=== PATIENT | male | born 1980 | race Caucasian/White ===

== ENCOUNTER 2017-04-25 05:50 | Inpatient (IN) | payer OTHER ==
[~2017-04-25] VITALS: Ht 172.7 cm; Wt 71.0 kg
[2017-04-25] VITALS (24 sets, daily range): BP systolic 86–139; BP diastolic 52–87; PULSE 50–111; RESP 16–20; TEMP 97.5–98.4; O2SAT 96–100
[~2017-04-25 05:50] MED LIST: BENA25TA8 PO; PRED50TA PO; RANI150 PO
[2017-04-25] MEDS ORDERED: SODIUM CHLORIDE 0.9% FLUSH 10 ML FLUSH IVF PRN ×2 (06:15→08:00)
[2017-04-25] MEDS ORDERED: ASPIRIN 81 MG CHEW TAB PO ONE (06:15)
[2017-04-25] MEDS ORDERED: SODIUM CHLOR 0.9% 1000 ML INJ 1,000 ML IV ONE ×3 (06:30→07:30)
[2017-04-25] MEDS ORDERED: ONDANSETRON HCL 4 MG/2 ML VIAL IV PUSH ONE ×2 (06:30→07:00)
[2017-04-25] MEDS ORDERED: SODIUM CHLOR 0.9% 1000 ML INJ 1,000 ML IV SCH (06:30)
--- NOTE | 2017-04-25 06:30 | RADRPT ---
EXAM DATE/TIME: 04/25/2017 06:15 [facility] COMPARISON: No previous studies available for comparison. INDICATIONS : Chest pain. MEDICAL HISTORY : None. SURGICAL HISTORY : None. ENCOUNTER: Initial ACUITY: 1 day PAIN SCORE: 10/10 LOCATION: Bilateral chest FINDINGS: A single view of the chest demonstrates the lungs to be symmetrically aerated without evidence of mas s, infiltrate or effusion. The cardiomediastinal contours are unremarkable. Osseous structures are intact. CONCLUSION: No evidence of acute cardiopulmonary disease. Sea Metcalf MD on April 25, 2017 at 6:28 Board Certified Radiologist. This report was verified electronically.
--- NOTE | 2017-04-25 06:30 | PD ---
HPI Chief Complaint: shoulder pain Time Seen by Provider: 06:11 Travel History International Travel<30 days: No Contact w/Intl Traveler<30days: No Traveled to known affect area: No History of Present Illness HPI 36 year-old male presents to the emergency department by private transportation for complaint of 2 hours of 9/10 left shoulder pain. Patient denies any injury or fall. Patient's had no fever or chills. Patient does not note increased pain with range of motion. Patient denies any chronic medical conditions prior surgery for colon is started as an at age one week. Patient takes no medications on a daily basis has no allergies does not smoke cigarettes drink alcohol or take any substances. Patient has family history of asthma and has mother has and cancer in his father has . Patient's had no recent long distance travel protracted bedrest her surgical procedure. Patient denies any chest pain. Patient does note shortness of breath nausea and diaphoresis. Patient took no medications prior to arrival to the emergency department. Patient reports left shoulder pain as a dull constant ache that has not improved. [facility] Past Medical History Narrative Medical hole in heart repair; occasional alcohol use; nursing notes reviewed Past Surgical History Other Surgery: Yes (heart surgery as an for hole in heart) Social History Alcohol Use: Yes (socially) Tobacco Use: No Substance Use: No Allergies-Medications (Allergen,Severity, Reaction): Coded Allergies: No Known Allergies (Unverified , 04/25/17) Reported Meds & Prescriptions Reported Meds & Active Scripts Active Review of Systems Except as stated in HPI: all other systems reviewed are Neg General / Constitutional: No: Fever, Chills HENT: No: Congestion Cardiovascular: Positive: Diaphoresis, No: Chest Pain or Discomfort, Dyspnea on exertion Respiratory: Positive: Shortness of Breath Gastrointestinal: Positive: Nausea, No: Vomiting, Abdominal Pain Genitourinary: No: Flank Pain Musculoskeletal: Positive: Pain (left shoulder) Skin: No Rash Neurologic: Positive: Weakness, No: Dizziness, Syncope, Focal Abnormalities, Coordination Problem Psychiatric: No: Anxiety Hematologic/Lymphatic: No: Lymph Node Enlargement Physical Exam Narrative GENERAL: Well-developed well-nourished male appears mildly ill with mild diaphoresis SKIN: Warm and dry. HEAD: Normocephalic. EYES: No scleral icterus. No injection or drainage. NECK: Supple, trachea midline. No JVD or lymphadenopathy. CARDIOVASCULAR: Regular rate and rhythm without murmurs, gallops, or rubs. RESPIRATORY: Breath sounds equal bilaterally. No accessory muscle use. GASTROINTESTINAL: Abdomen soft, non-tender, nondistended. MUSCULOSKELETAL: No cyanosis, or edema. Bilateral shoulders demonstrate full range of motion bilateral radial pulses 2+ to palpation dorsalis pedis pulses 2 + to palpation BACK: Nontender without obvious deformity. No CVA tenderness. Data Data Last Documented VS Vital Signs Date Time Temp Pulse Resp B/P Pulse Ox O2 Delivery O2 Flow Rate FiO2 04/25/17 07:31 88 16 112/61 100 Nasal Cannula 2 04/25/17 06:28 97.5 Orders Electrocardiogram (04/25/17 06:11) Basic Metabolic Panel (Bmp) (04/25/17 06:11) Ckmb (Isoenzyme) Profile (04/25/17 06:11) Complete Blood Count With Diff (04/25/17 06:11) Magnesium (Mg) (04/25/17 06:11) Prothrombin Time / Inr (Pt) (04/25/17 06:11) Act Partial Throm Time (Ptt) (04/25/17 06:11) Troponin I (04/25/17 06:11) Chest, Single Ap (04/25/17 06:11) Ecg Monitoring (04/25/17 06:11) Bilateral Bp Monitoring (04/25/17 06:11) Iv Access Insert/Monitor (04/25/17 06:11) Oximetry (04/25/17 06:11) Oxygen Administration (04/25/17 06:11) Aspirin Chew (Aspirin Chew) (04/25/17 06:15) Sodium Chloride 0.9% Flush (Ns Flush) (04/25/17 06:15) Sodium Chlor 0.9% 1000 Ml Inj (Ns 1000 M (04/25/17 06:30) Sodium Chlor 0.9% 1000 Ml Inj (Ns 1000 M (04/25/17 06:30) Sodium Chlor 0.9% 1000 Ml Inj (Ns 1000 M (04/25/17 06:30) Ondansetron Inj (Zofran Inj) (04/25/17 06:30) Atropine Inj (Atropine Inj) (04/25/17 06:35) CKMB (04/25/17 06:20) CKMB% (04/25/17 06:20) Ondansetron Inj (Zofran Inj) (04/25/17 07:00) Morphine Inj (Morphine Inj) (04/25/17 07:00) Cta Thor Abd Aorta W Iv C W3d (04/25/17 ) Nitroglycerin Sl (Nitrostat Sl) (04/25/17 07:00) Electrocardiogram (04/25/17 ) Sodium Chlor 0.9% 1000 Ml Inj (Ns 1000 M (04/25/17 07:30) Labs Laboratory Tests Test 04/25/17 06:20 White Blood Count 7.8 TH/MM3 Red Blood Count 4.79 MIL/MM3 Hemoglobin 14.7 GM/DL Hematocrit 43.2 % Mean Corpuscular Volume 90.1 FL Mean Corpuscular Hemoglobin 30.7 PG Mean Corpuscular Hemoglobin 34.1 % Concent Red Cell Distribution Width 12.5 % Platelet Count 297 TH/MM3 Mean Platelet Volume 8.1 FL Neutrophils (%) (Auto) 50.8 % Lymphocytes (%) (Auto) 32.4 % Monocytes (%) (Auto) 7.3 % Eosinophils (%) (Auto) 7.1 % Basophils (%) (Auto) 2.4 % Neutrophils # (Auto) 3.9 TH/MM3 Lymphocytes # (Auto) 2.5 TH/MM3 Monocytes # (Auto) 0.6 TH/MM3 Eosinophils # (Auto) 0.6 TH/MM3 Basophils # (Auto) 0.2 TH/MM3 CBC Comment DIFF FINAL Differential Comment Prothrombin Time 10.9 SEC Prothromb Time International 1.0 RATIO Ratio Activated Partial 23.3 SEC Thromboplast Time Sodium Level 141 MEQ/L Potassium Level 3.5 MEQ/L Chloride Level 106 MEQ/L Carbon Dioxide Level 26.5 MEQ/L Anion Gap 9 MEQ/L Blood Urea Nitrogen 15 MG/DL Creatinine 0.96 MG/DL Estimat Glomerular Filtration 88 ML/MIN Rate Random Glucose 149 MG/DL Calcium Level 8.9 MG/DL Magnesium Level 2.2 MG/DL Total Creatine Kinase 107 U/L Creatine Kinase MB 0.8 NG/ML Troponin I LESS THAN 0.02 NG/ML MDM Medical Decision Making Medical Screen Exam Complete: Yes Emergency Medical Condition: Yes Medical Record Reviewed: Yes Interpretation(s) EKG sinus bradycardia rate [address] elevation or injury pattern change noted Differential Diagnosis Shoulder pain, ACS, VA, PE, aortic dissection, pneumothorax, musculoskeletal pain, vasovagal near syncope Narrative Course 36-year-old male presents to the emergency department for 2 hours of severe left shoulder pain without injury and not worsened by range of motion with mild diaphoresis complaint of shortness of breath and nausea; EKG performed which shows sinus bradycardia without acute ST elevation or injury pattern mildly biphasic T-wave in V1 patient with near vasovagal event during IV access insertion. Patient administered aspirin 162 mg 2 L of normal saline bolus maintenance IV fluids and Zofran 4 mg IV; chest x-ray reveals no lobar infiltrate effusion or pneumothorax. Patient administered 2 L of normal saline wide open along with maintenance IV fluids of 100 cc per hour patient administered Zofran 4 mg IV EKG repeated as left shoulder pain has now extended to anterior chest tightness Blood pressure has improved after IV fluid bolus and left shoulder pain has gone from 9/10 in intensity to 5/10 in intensity and chest discomfort has gone from 8/10 intensity to 7/10 in intensity blood pressure systolic is 139 patient has been ordered to receive subungual nitroglycerin. First set of cardiac enzymes are normal range stat CTA thoracic and abdomen ordered. Patient's care has been assumed by oncoming physician Dr. Teixeira with call placed to cardiology. Patient spouse are aware of plan to transfer patient to [facility]. Diagnosis Primary Impression: ACS (acute coronary syndrome) Admitting Information Admitting Physician Requests: Admit Arelis Milner MD Apr 25, 2017 06:30 Arelis Milner MD Apr 25, 2017 06:30
[2017-04-25] MEDS ORDERED: ATROPINE SULFATE 1 MG/10 ML SYRINGE ONE (06:35)
[2017-04-25 06:38] LABS: AUTOMATED NEUTROPHIL # 3.9 TH/MM3 (1.8-7.7); BASOPHIL # 0.2 TH/MM3 (0-0.2); BASOPHIL % 2.4 % (0.0-2.0); EOSINOPHIL # 0.6 TH/MM3 (0-0.4); EOSINOPHIL % 7.1 % (0.0-4.0); HEMATOCRIT 43.2 % (39.0-51.0); HEMO FLAGS DIFF FINAL; LYMPH % 32.4 % (9.0-44.0); LYMPHOCYTE # 2.5 TH/MM3 (1.0-4.8); MEAN CELL VOLUME 90.1 FL (80.0-100.0); MEAN CORPUSCULAR HEMOGLOBIN 30.7 PG (27.0-34.0); MEAN CORPUSCULAR HGB CONC 34.1 % (32.0-36.0); MONO % 7.3 % (0.0-8.0); NEUT % 50.8 % (16.0-70.0); PLATELET COUNT 297 TH/MM3 (150-450); RED BLOOD COUNT 4.79 MIL/MM3 (4.50-5.90); RED CELL DISTRIBUTION WIDTH 12.5 % (11.6-17.2); WHITE BLOOD COUNT 7.8 TH/MM3 (4.0-11.0)
[2017-04-25 06:39] LABS: CHLORIDE 106 MEQ/L (98-107); POTASSIUM 3.5 MEQ/L (3.5-5.1); SODIUM (NA) 141 MEQ/L (136-145)
[2017-04-25 06:42] LABS: ANION GAP 9 MEQ/L (5-15); BICARBONATE 26.5 MEQ/L (21.0-32.0); BLOOD UREA NITROGEN 15 MG/DL (7-18); MAGNESIUM 2.2 MG/DL (1.5-2.5)
[2017-04-25 06:43] LABS: APTT (PATIENT) 23.3 SEC (24.3-30.1); PROTHROMBIN TIME - PATIENT 10.9 SEC (9.8-11.6)
[2017-04-25 06:45] LABS: GLOMERULAR FILTRATION RATE 88 ML/MIN (>89)
[2017-04-25 06:49] LABS: CREATINE KINASE 107 U/L (39-308)
[2017-04-25] MEDS ORDERED: MORPHINE SULFATE 4 MG/ML INJ IV PUSH ONE (07:00)
[2017-04-25 07:01] LABS: CKMB 0.8 NG/ML (0.5-3.6)
--- NOTE | 2017-04-25 07:07 | PD ---
Physical Exam Narrative Patient was seen by ED physician and signed out to me. Data Data Last Documented VS Vital Signs Date Time Temp Pulse Resp B/P Pulse Ox O2 Delivery O2 Flow Rate FiO2 04/25/17 07:31 88 16 112/61 100 Nasal Cannula 2 04/25/17 06:28 97.5 Orders Electrocardiogram (04/25/17 06:11) Basic Metabolic Panel (Bmp) (04/25/17 06:11) Ckmb (Isoenzyme) Profile (04/25/17 06:11) Complete Blood Count With Diff (04/25/17 06:11) Magnesium (Mg) (04/25/17 06:11) Prothrombin Time / Inr (Pt) (04/25/17 06:11) Act Partial Throm Time (Ptt) (04/25/17 06:11) Troponin I (04/25/17 06:11) Chest, Single Ap (04/25/17 06:11) Ecg Monitoring (04/25/17 06:11) Bilateral Bp Monitoring (04/25/17 06:11) Iv Access Insert/Monitor (04/25/17 06:11) Oximetry (04/25/17 06:11) Oxygen Administration (04/25/17 06:11) Aspirin Chew (Aspirin Chew) (04/25/17 06:15) Sodium Chloride 0.9% Flush (Ns Flush) (04/25/17 06:15) Sodium Chlor 0.9% 1000 Ml Inj (Ns 1000 M (04/25/17 06:30) Sodium Chlor 0.9% 1000 Ml Inj (Ns 1000 M (04/25/17 06:30) Sodium Chlor 0.9% 1000 Ml Inj (Ns 1000 M (04/25/17 06:30) Ondansetron Inj (Zofran Inj) (04/25/17 06:30) Atropine Inj (Atropine Inj) (04/25/17 06:35) CKMB (04/25/17 06:20) CKMB% (04/25/17 06:20) Ondansetron Inj (Zofran Inj) (04/25/17 07:00) Morphine Inj (Morphine Inj) (04/25/17 07:00) Cta Thor Abd Aorta W Iv C W3d (04/25/17 ) Nitroglycerin Sl (Nitrostat Sl) (04/25/17 07:00) Electrocardiogram (04/25/17 ) Sodium Chlor 0.9% 1000 Ml Inj (Ns 1000 M (04/25/17 07:30) Admit Order (Ed Use Only) (04/25/17 07:44) Labs Laboratory Tests Test 04/25/17 06:20 White Blood Count 7.8 TH/MM3 Red Blood Count 4.79 MIL/MM3 Hemoglobin 14.7 GM/DL Hematocrit 43.2 % Mean Corpuscular Volume 90.1 FL Mean Corpuscular Hemoglobin 30.7 PG Mean Corpuscular Hemoglobin 34.1 % Concent Red Cell Distribution Width 12.5 % Platelet Count 297 TH/MM3 Mean Platelet Volume 8.1 FL Neutrophils (%) (Auto) 50.8 % Lymphocytes (%) (Auto) 32.4 % Monocytes (%) (Auto) 7.3 % Eosinophils (%) (Auto) 7.1 % Basophils (%) (Auto) 2.4 % Neutrophils # (Auto) 3.9 TH/MM3 Lymphocytes # (Auto) 2.5 TH/MM3 Monocytes # (Auto) 0.6 TH/MM3 Eosinophils # (Auto) 0.6 TH/MM3 Basophils # (Auto) 0.2 TH/MM3 CBC Comment DIFF FINAL Differential Comment Prothrombin Time 10.9 SEC Prothromb Time International 1.0 RATIO Ratio Activated Partial 23.3 SEC Thromboplast Time Sodium Level 141 MEQ/L Potassium Level 3.5 MEQ/L Chloride Level 106 MEQ/L Carbon Dioxide Level 26.5 MEQ/L Anion Gap 9 MEQ/L Blood Urea Nitrogen 15 MG/DL Creatinine 0.96 MG/DL Estimat Glomerular Filtration 88 ML/MIN Rate Random Glucose 149 MG/DL Calcium Level 8.9 MG/DL Magnesium Level 2.2 MG/DL Total Creatine Kinase 107 U/L Creatine Kinase MB 0.8 NG/ML Troponin I LESS THAN 0.02 NG/ML [facility] Supervised Visit with KRISTYN: No Interpretation(s) 7:14 AM. EKG shows sinus rhythm nonspecific ST-T wave change. Repeat EKG 2. Cardiac enzymes are normal. Narrative Course Patient was seen by ED physician and signed out to me. I spoke with Dr. Maciel , senior net developer on-call. Advised admission to the medical service with cardiology consultation. Patient was given aspirin and nitroglycerin. Dr. King advised no Lovenox or heparin. Diagnosis Primary Impression: Chest pain Qualified Code: R07.9 - Chest pain, unspecified type Admitting Information Admitting Physician Requests: Admit Walt Teixeira MD Apr 25, 2017 07:07
[2017-04-25] MEDS: NITROGLYCERIN 0.4 MG SL 25 TABS/BTL SL PRN ×4 (07:10→11:33)
[2017-04-25] MEDS ORDERED: ONDANSETRON HCL 4 MG/2 ML VIAL IV PRN (08:00)
[2017-04-25] MEDS ORDERED: IOHEXOL 350 MG/ML 10 ML VIAL (for RAD DIAG) IV ONE (08:30)
--- NOTE | 2017-04-25 08:37 | RADRPT ---
EXAM DATE/TIME: 04/25/2017 07:50 [facility] COMPARISON: CHEST SINGLE AP, April 25, 2017, 6:15. INDICATIONS : Chest pain. Left shoulder pain. IV CONTRAST: 75 cc Omnipaque 350 (iohexol) IV RADIATION DOSE: 13.89 CTDIvol (mGy) MEDICAL HISTORY : None SURGICAL HISTORY : None. ENCOUNTER: Initial ACUITY: 1 day PAIN SCALE: 8/10 LOCATION: chest TECHNIQUE: Volumetric scanning was performed using a multi-row detector CT scanner. The data was post processed with a variety of visualization algorithms including full volume maximum intensity projection, multi -planar sliding thin slab reformation, curved planar reformation, and surface rendering techniques. Using automated exposure control and adjustment of the mA and/or kV according to patient size, radiat ion dose was kept as low as reasonably achievable to obtain optimal diagnostic quality images. FINDINGS: LUNGS: There is paraseptal emphysematous change bilaterally. No consolidation or pneumothorax is present. In the right upper lobe in a subpleural location there is a 6 mm nodule with spiculated margins. MEDIASTINUM: Heart and great vessels demonstrate no acute finding. No lymphadenopathy is visualized. ABDOMEN: The liver, adrenal glands, spleen, and pancreas demonstrate no abnormality. 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 The extrarenal pelves are distended but there are no findings to indicate obstruction. No renal s tones are seen. There is a nonobstructive bowel gas pattern. PELVIS: No acute abnormality. THORACIC AORTA: The thoracic aortic root is normal with normal branching of the great vessels. There is no evidence of aneurysm or dissection. There is an aberrant right subclavian artery. ABDOMINAL AORTA: The aorta is normal in caliber without aneurysm or dissection. The renal arteries are patent bilater ally. The proximal celiac and superior mesenteric arteries are patent and normal in diameter. CONCLUSION: 1. No aneurysm or dissection is present. Overall, no acute finding is seen. 2. Incidental right upper lobe 6 mm noncalcified pulmonary nodule. There is back on paraseptal emphys esperanza. Based on Fleischner Society follow up recommendations, suggest 6 month followup noncontrast ches t CT to confirm stability. Also correlate with any prior outside imaging studies, if available. 3. Horseshoe kidney. Sea Trotter MD on April 25, 2017 at 8:29 Board Certified Radiologist. This report was verified electronically.
[2017-04-25] MEDS ORDERED: SODIUM CHLORIDE 0.9% FLUSH 10 ML FLUSH IV FLUSH SCH (09:00)
[2017-04-25] MEDS ORDERED: BISACODYL 10 MG SUPP RECTAL PRN (10:15)
[2017-04-25] MEDS ORDERED: NALOXONE HCL 0.4 MG/ML AMP IV PRN (10:15)
[2017-04-25] MEDS ORDERED: SODIUM CHLORIDE 0.9% FLUSH 10 ML FLUSH IV FLUSH PRN (10:15)
[2017-04-25] MEDS ORDERED: SENNOSIDES 8.6 MG TAB PO PRN (10:15)
[2017-04-25] MEDS ORDERED: MAGNESIUM HYDROXIDE SUSP 30 ML CUP PO PRN (10:15)
[2017-04-25] MEDS ORDERED: ACETAMINOPHEN 325 MG TAB PO PRN (10:15)
[2017-04-25] MEDS ORDERED: ONDANSETRON HCL 4 MG/2 ML VIAL IVP PRN (10:15)
[2017-04-25] MEDS ORDERED: NS 1000P @30 MLS/HR (KVO) IV SCH (11:00)
[2017-04-25] MEDS ORDERED: NITROGLYCERIN 0.4 MG SL 25 TABS/BTL SL ONE (11:28)
[2017-04-25] MEDS ORDERED: MORPHINE SULFATE 4 MG/ML INJ IV PUSH PRN (11:45)
--- NOTE | 2017-04-25 13:11 | RADRPT ---
EXAM DATE/TIME: 04/25/2017 12:44 [facility] COMPARISON: No previous studies available for comparison. INDICATIONS : Left shoulder pain, no known injury. MEDICAL HISTORY : None. SURGICAL HISTORY : None. ENCOUNTER: Subsequent ACUITY: 1 day PAIN SCORE: 3/10 LOCATION: Left shoulder FINDINGS: Two view examination of the left shoulder demonstrates no evidence of fracture or dislocation. The g lenohumeral and acromioclavicular joints are maintained. Bony mineralization is normal. Visualized l eft lung is clear.CONCLUSION: 1. Unremarkable radiographs of the left shoulder. José Miguel Dominguez MD on April 25, 2017 at 13:08 Board Certified Radiologist. This report was verified electronically.
--- NOTE | 2017-04-25 13:44 | EKG ---
Date Performed: 04/25/2017 Time Performed: 06:22:16 PTAGE: 36 years EKG: SINUS BRADYCARDIA BORDERLINE ECG NO PREVIOUS TRACING DOCTOR: Leanne Harris Interpretating Date/Time 04/25/2017 13:42:17
--- NOTE | 2017-04-25 13:53 | EKG ---
Date Performed: 04/25/2017 Time Performed: 06:46:47 PTAGE: 36 years EKG: SINUS BRADYCARDIA BORDERLINE ECG Compared to prior tracing no significant change PREVIOUS TRACING : 04/25/2017 06. DOCTOR: Leanne Harris Interpretating Date/Time 04/25/2017 13:46:16
[2017-04-25 15:42] LABS: CREATINE KINASE 89 U/L (39-308)
--- NOTE | 2017-04-25 16:06 | MB ---
cc: DOREEN FLOR DATE OF CONSULTATION: 04/25/2017 REASON FOR CONSULTATION: Mr. Mohan is a 36 year old male who was brought to the [facility] emergency room with severe left shoulder pain and substernal chest pressure. He has intermittent episodes of pain. He is referred for cardiac evaluation with the diagnosis of unstable angina and was transferred to [facility] for cardiac catheterization. He still has episodes of substernal chest pressure. PAST MEDICAL HISTORY Negative for hypertension, dyslipidemia, Diabetes mellitus, coronary disease or cerebrovascular accident. Record of cardiac shunt at a young age. MEDICATIONS None ALLERGIES None. SOCIAL HISTORY The patient does not smoke. He drinks alcohol socially. FAMILY HISTORY: Family history in the heart disease. REVIEW OF SYSTEMS Systems otherwise negative. PHYSICAL EXAMINATION VITAL SIGNS: Blood pressure 120/86, pulse 92 and regular. HEAD, EYES, EARS, NOSE, AND THROAT: Negative. No bruits. LUNGS: Clear. HEART: Regular with no murmur, gallop or rub. ABDOMEN: Soft, no bruits. EXTREMITIES: Distal pulses. NEUROLOGICALLY: Nonfocal. RADIOLOGIC: EKG was reviewed and showed no sinus bradycardia at 46 beats per minute, normal axis intervals, no acute changes. LABORATORY DATA Hemoglobin 14.7, potassium 3.5, creatinine 1.0 troponin, CK and troponin negative. ASSESSMENT 1. Unstable angina. 2. Status post surgical repair of congenital heart disease. DISPOSITION: Mr. Mohan will undergo cardiac catheterization and . The patient wishes to proceed. MD LISSET Cortes/cheyanne /1:22 PM /3:39 PM
--- NOTE | 2017-04-25 17:00 | MH ---
cc: DAVID BATISTA DATE OF ADMISSION: 04/25/2017 TRAVEL IN THE LAST THIRTY DAYS: None. CHIEF COMPLAINT: Shoulder pain radiating into chest. Hypotension. Diaphoretic. HISTORY OF PRESENT ILLNESS: This is a pleasant slim 36-year-old white male who has been in his usual state of health up until approximately 4:00 a.m. He was abruptly awakened with left shoulder pain in which he states was a 9/10. He states the pain was very intense and he did notice some numbness and tingling in his hands and fingers. 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 He states that he does a lot of heavy lifting and bending with his job but has never noted any pain in his left shoulder and no symptoms like he experienced today. He states the pain has been eased now but at home he became diaphoretic and pale. He was short of breath and decided that he needed to come to the emergency room to be evaluated. He initially went to [place], was evaluated and sent here for further evaluation and testing. The patient states that the shoulder pain did radiate around into his left chest. The pain is eased now but the patient is holding his left arm and shoulder up over his head and states that that is the most comfortable position for it to be in. The patient has a history of an atrial septal defect and had surgery as a very young child. He does have a loud murmur. He states he has never had any cardiac work ups or problems since the surgery. In the emergency room, the patient was noted to be hypotensive. His EKG showed bradycardia. Heart rate now is ranging between 68 and 77. The patient is alert, oriented, cooperative. His is at his bedside. PAST MEDICAL HISTORY: Medical history includes: 1. Gastroesophageal reflux disease (GERD) with esophageal narrowing. 2. Occasional social alcohol approximately once a week or less. PAST SURGICAL HISTORY: 1. Atrial septal defect repair. 2. Esophageal stretching. ALLERGIES: NO KNOWN ALLERGIES. MEDICATIONS: No active reported medications. SOCIAL HISTORY: The patient is . Currently works full-time as an staff accountant with [employer]. As noted, he does active work with lifting and bending as well as computer. REVIEW OF SYSTEMS: A twelve-point review of systems was obtained. Positives noted in the history of present illness, which include numbness and tingling in his left arm and hand. Acute sharp stabbing pain in his left shoulder, diaphoresis, shortness of breath, clamminess, hypotension. Chest pain that was radiating from the left shoulder. Hyperglycemia. No known diabetes. Other than that, other systems are negative. PHYSICAL EXAMINATION: VITAL SIGNS: Temperature is 98, pulse 68, respirations 18, blood pressure 119/82. On admission to this emergency room, it was 139/84. In [place], it was as low as 86/52 and 100/65. GENERAL: A slim white male well-nourished resting on the bed. He is alert and oriented and cooperative. SKIN: [place], warm and dry. HEAD, EYES, EARS, NOSE, THROAT: Normocephalic and atraumatic. Pupils equal, round and reactive to light and accommodation. [place] mucous membranes. Tongue is midline. NECK: The neck is supple. No scleral icterus. No mucous membranes or drainage from his nasal or oral cavity noted. CARDIOVASCULAR: S1 and S2. Regular rate and rhythm. Loud murmur, probable systolic / holosystolic. No edema. Pulses intact. PULMONARY: The lungs sounds are essentially clear anteriorly and posteriorly. No wheezes, rales or rhonchi. ABDOMEN: Flat, soft, nontender, nondistended with active bowel sounds. GENITOURINARY: Voids clear yellow urine in the urinal. MUSCULOSKELETAL: Moves his extremities with purpose. He is holding his left arm and shoulder up over his head and propped and states it feels better that way. NEUROLOGIC: Neurologically speech is clear. No defects noted. PSYCHIATRIC: Appropriate mood and affect. DIAGNOSTIC DATA: Sodium 141, potassium 3.5, chloride 106, carbon dioxide 26.5, BUN 15, creatinine 0.96, GFR is 88, random glucose is 149. Total creatine kinase is 107 and now 89. Troponins x2 are less than 0.02. CK-MB is 0.8. PT and INR are 1. WBC count 7.8, RBCs 4.79, hemoglobin 14.7, hematocrit 43.2, platelet count is 297,000. His eosinophil count is 7.1. Basophil count is 2.4. IMAGING STUDIES: Shoulder x-ray is unremarkable. Aortic CTA shows no aneurysm or dissection. Incidental right upper lobe 6 mm noncalcified pulmonary nodule. There is back on paraseptal emphysema. Based on recommendations, suggest six month follow up noncontrast chest CT to confirm stability with this pulmonary nodule. Also correlate with any outside imaging studies if available. Horseshoe kidney seen. Chest x-ray shows no cardiopulmonary disease. ASSESSMENT AND PLAN: 1. Left shoulder pain radiating into mid-sternal chest pain, rule out acute coronary syndrome and coronary artery disease. 2. Hyperglycemia. No known diabetes. 3. Gastroesophageal reflux disease (GERD). 4. Social alcohol use. 5. Noncalcified pulmonary nodule seen in the right upper lobe. PLAN: 1. Labs, EKGS and cardiology consult. 2. We will rule out coronary artery disease since this was an acute onset and an excruciating pain event for the patient this morning. 3. The patient is currently NPO and waiting on a cardiac catheterization to be done later on this afternoon. 4. The patient has no known diabetes but runs significant in his family. Will draw a hemoglobin A1c to evaluate a 3-month process versus a stress event. This was discussed with patient and in detail. He will need to follow up with his primary care physician after this hospital event. 5. Will monitor his vital signs q. 4. 6. Monitor bowel regimen, pain regimen. 7. Treat his acute pain with nitroglycerin or IV medications until we know the post cath information. 8. Since the patient incidentally showed a 6 mm noncalcified pulmonary nodule, the recommendation is to have this followed up on in six months to confirm stability. This has not been discussed with the patient yet due to his increased anxiety and stress over this cardiac catheterization. 9. We will draw a cholesterol panel, a lipid panel. 10. He will have his needs re-evaluated based on the course of treatment and the findings of this heart study. The patient is a full code, full aggressive care. Dictated by TANVI Hartley. David Batista MD JP/ANA /4:12 PM /4:35 PM PT SEEN AND EXAMINED ABOVE ON DAY OF ADMISSION WITH TANVI CHART WAS REVIEWED MEDS LABS AND RAD DATA REVIWED ANNA PT AND AT BEDSIDE IN DETAIL PLAN OF CARE ANNA TINAJERO COND GUARDED MTDD
[2017-04-25] MEDS ORDERED: HEPARIN-NS/PF INJ 500 ML ONE (17:34)
[2017-04-25] MEDS ORDERED: MIDAZOLAM HCL 2 MG/2 ML VIAL ONE (17:35)
[2017-04-25 17:53] LABS: HDL CHOLESTEROL 55.2 MG/DL (40.0-60.0); LDL CHOLESTEROL 110 MG/DL (0-99)
[2017-04-25] MEDS ORDERED: IOHEXOL 350 MG/ML 100 ML BTL (for Cath Lab) OTHER ONE (18:01)
[2017-04-25] MEDS ORDERED: SODIUM CHLOR 0.9% 1000 ML INJ 500 ML IV SCH (18:27)
--- NOTE | 2017-04-25 18:32 | CATHPROC ---
XIHA HIS Report Study Information Study Number Admission Scheduled Start Study Start [id number] Apr 25 2017 7:46AM 04/25/2017 Apr 25 2017 5:28PM [place] [facility] Cardiac Catheterization Admit Source Facility Department Transfer in from another acute care facility [facility] Physician and Clinical Staff Initial Jose Alfredo Carlos Fabric Awning Repairer Katie Beyer,RN Fabric Awning Repairer Marilou Gonzalez,ARELY Recorder Zahida Paulino,RT(R) Scrub Holland Becker,RT(R) Procedures Performed Procedure Location (Site) Vessel Name Angiogram LV LV Ventricle Coronary Angiograms LCA Left Coronary Coronary Angiograms RCA Right Coronary L Heart Cath Wire insertion Fem Art (right) Femoral Art Equipment Time Senior Applications Developer Description Size Mfg Part Number Used/Scraped TRANSDUCER, SUSIE [id number] 17:42 [employer] * Used W/STOCKCOCK *[id number] [id number] *[id number] [id number] *[id number] [id number] *[id number] 17:42 MEDLINE IND[employer] PACK, CCL CUSTOM * Used *[id number] 17:42 Ch[employer]we PACER PEN, SKIN DUAL W/ RULER * Used *[id number] 17:42 [employer] WIRE, 3MMJ .035 180CM 180CM Used *[id number] PROBE COVER, STERILE [id number] 17:42 [employer] MEDICAL * Used ULTRASOUND W/ GEL *[id number] 17:42 NAMIC MANIFOLD, 4 PORT * Used *[id number] 17:42 NAMIC TUBING, HIGH PRESSURE 48" 48" Used *[id number] 17:42 NAMIC TUBING, HIGH PRESSURE 48" 48" Used *[id number] 17:42 NYCOMED OMNIPAQUE, 350 MG, 150ML 150ML [id number] Used [id number] 17:42 LY MEDICAL BLANKET,WARM AIR CCL * Used *[id number] 17:42 TERUMO MEDICAL SHEATH, FR5 TERUMO (10CM) FR 5 [id number] Used History: Allergies Allergy Reaction No Known Allergies History: Risk Factors Family History of Hypertension Dyslipidemia Previous [place] Previous Heart Failure Premature CAD No No No No No Prior Valve Prior PCI Prior CABG Surgery No No No Cerebrovascular Peripheral Artery Chronic Lung On Dialysis Diabetes Disease Disease Disease No No No No No History: Stress Tests Stress or Imaging Studies Performed No History: Other Current Smoker No Labs Hgb (g/dl) Hct (%) WBC (l/cumm) Platelets (thousands) 11.60-17.00 35.00-51.00 4.00-11.00 150.00-450.00 14.0 43 4.7 297 Glucose (mg/dl) BUN (mg/dl) Creatinine (mg/dl) BUN:Creatinine (1:x) 74.00-106.00 7.00-18.00 0.50-1.30 10.00-20.00 149 15 0.9 16.7 Na (meq/l) K (meq/l) 136.00-145.00 3.50-5.10 141 3.5 INR (PTT:PT) 0.90-1.10 1 Troponin I (ng/ml) CPK (u/l) CPK-MB (ng/ML) 0.02-0.05 26.00-308.00 0.50-3.60 0.02 89 0.8 Medication Medication Total Dose (Bolus/Oral) Medication Total Dosage/Unit 1% XYLOCAINE 20 mL FENTANYL 50 mcg VERSED 2 mg Medications (Bolus/Oral) Medication Time Given Dosage/Unit Administered By Reason VERSED 04/25/2017 5:59:00 PM 1 mg Marilou Gonzalez 1 mg VERSED given in lab by Marilou Gonzalez RN via Peripheral IV. Ordered by Jose Alfredo King. FENTANYL 04/25/2017 6:01:00 PM 50 mcg Jose Alfredo King 50 mcg FENTANYL given in lab by Jose Alfredo King via Peripheral IV. 1% XYLOCAINE 04/25/2017 6:01:15 PM 20 mL Jose Alfredo King 20 mL 1% XYLOCAINE given in lab by Jose Alfredo King via Subcutaneous. VERSED 04/25/2017 6:02:00 PM 1 mg Sujey Gonzalezaret 1 mg VERSED given in lab by Marilou Gonzalez RN via Peripheral IV. Ordered by Jose Alfredo King. Medication (Drip) Medication Time Given Dosage/Unit Concentration/Unit Diluent (ml) Solution IV Solutions 04/25/2017 5:44:00 PM 50 mL (IV) 500 NaCl .9 Patient arrived on IV Solutions via Peripheral IV. Pump/Drip Flow using NaCl .9. Initial Case Assessment Circulatory - Right Pulses Dorsalis Pedis Femoral 3 3 Scale (0,1,2,3,4,d) Circulatory - Left Pulses Dorsalis Pedis Femoral 3 3 Scale (0,1,2,3,4,d) Neurological State Oriented to time-place- Alert Moves all extremities person Respiration - General Respiration Rate SpO2 (%) (B/min) 18 98 Chronological Log Time Study Chronological Log 17:34:32 Patient arrived via Bed. 17:34:33 Patient Name, D.O.B, / Armband Verified By R.N. 17:34:34 Consent signed by the physician and the patient and verified by the [facility] staff. 17:34:35 Pre-op and post- op instructions given; patient acknowledges understanding of instructions. 17:34:37 Verbal Stimulation=2 Physical Stimulation=2 Airway=2 Respiration=2 TOTAL=8. (0=absent, 1=li mited, 2=present) Vitals capture started with the following parameters, Patient=Adult, Interval=5 min, Initial Pr uqfekl=885 mmHg, 17:36:23 Deflation Rate=5 mmHg 17:37:00 CY=135 bpm, GWUG=348/99 mmhg, SpO2=98.0 %, Pain=5, Latisha=10, Hoffman=2 17:40:58 Patient has been NPO for More than 6Hrs. 17:42:46 VN=649 bpm, JOGQ=677/85 mmhg, SpO2=98.0 %, Resp=20 B/min, Pain=5, Latisha=10, Hoffman=2 17:43:26 Skin Breakdown- None 17:43:46 A # 20 IV was noted in the Antecubital (left). Grade = 0 17:44:00 Patient arrived on IV Solutions via Peripheral IV. Pump/Drip Flow using NaCl .9. 17:44:23 History and physical on the chart or being dictated. Assessment: Initial Case Right Pulses: Parag Ped=3, Femoral=3 17:44:28 Left Pulses: Parag Ped=3, Femoral=3 Neurological: State=Alert, Ox3, GAITAN Respiration: Resp=18 B/min, SpO2=98 % 17:45:15 Bilateral groins prepped with 2% chlorhexidine, and with a 3 min. waiting time. 17:45:23 Reference ECG taken 17:46:58 UW=473 bpm, BFPL=372/80 mmhg, SpO2=98.0 %, Resp=14 B/min, Pain=5, Latisha=10, Hoffman=2 17:49:46 Pressure channel 1 zeroed. 17:51:59 LY=012 bpm, IESB=892/80 mmhg, SpO2=98.0 %, Resp=18 B/min, Pain=5, Latisha=10, Hoffman=2 17:55:41 MD arrived. 17:56:58 AL=350 bpm, MUXB=286/84 mmhg, SpO2=99.0 %, Resp=16 B/min, Pain=5, Latisha=10, Hoffman=2 17:59:00 1 mg VERSED given in lab by Marilou Gonzalez, ARELY via Peripheral IV. Ordered by Vanesa King. Time Out. Correct patient, correct procedure,correct physician, ,power injector loaded with con trast with surgical team 17:59:52 present. Time Out Concurred by , individual staff in procedure 18:01:00 50 mcg FENTANYL given in lab by Jose Alfredo Knig via Peripheral IV. 18:01:02 Case Start 18:01:15 20 mL 1% XYLOCAINE given in lab by Jose Alfredo King via Subcutaneous. 18:01:57 XP=668 bpm, SXFU=924/85 mmhg, SpO2=98.0 %, Resp=17 B/min, Pain=5, Latisha=10, Hoffman=2 18:02:00 1 mg VERSED given in lab by Marilou Gonzalez, ARELY via Peripheral IV. Ordered by Vanesa King. 18:03:44 Access site was Right Femoral Artery. 18:03:59 A SHEATH, FR5 TERUMO (10CM) FR 5 was advanced into the Fem Art (right) using the Percutaneo us technique. A PIGTAIL ANG. INFINITI CATHETER FR 5 was advanced over a wire. OMNIPAQUE, 350 MG, 150ML 150ML was used 18:04:24 for injections. 18:04:51 A WIRE, 3MMJ .035 180CM 180CM was inserted via Fem Art (right). Recorded Pressure: LV, WO=316, Condition=Condition 1 18:05:47 (Left Ventricle) LV 112/11/13 18:06:20 The LV was injected at 10 cc/sec for a total of 30. OMNIPAQUE, 350 MG, 150ML 150ML used. 18:07:02 XL=863 bpm, OOIO=495/66 mmhg, SpO2=89.0 %, Resp=14 B/min, Pain=5, Latisha=10, Hoffman=2 Recorded Pressure: LV, Ao, YV=460, Condition=Condition 1 18:07:12 (Left Ventricle) LV 110/5/14, (Aorta) Ao 102/72/85 After removing the current catheter a JL 4.0 INFINITI CATHETER FR 5 was advanced over a WIRE, 3 MMJ .035 180CM 18:07:57 180CM. Recorded Pressure: Ao, NA=101, Condition=Condition 1 18:08:51 (Aorta) Ao 105/73/86 18:09:18 The LCA was injected and visualized at various angles. OMNIPAQUE, 350 MG, 150ML 150ML used . After removing the current catheter a AR MOD INFINITI CATHETER FR 5 was advanced over a WIRE, 3 MMJ .035 180CM 18:10:55 180CM. 18:11:59 LJ=659 bpm, FOYF=610/69 mmhg, SpO2=92.0 %, Resp=13 B/min, Pain=5, Latisha=10, Hoffman=2 18:12:27 The RCA was injected and visualized at various angles. OMNIPAQUE, 350 MG, 150ML 150ML used . 18:14:47 Catheter(s) removed without difficulty 18:16:56 YD=135 bpm, EYOK=383/79 mmhg, SpO2=95 %, Resp=20 B/min, Pain=0, Latisha=10, Hoffman=2 18:18:47 Case End Vitals capture started with the following parameters, Patient=Adult, Interval=5 min, Initial Pr nihhrm=024 mmHg, 18:18:54 Deflation Rate=5 mmHg 18:19:01 Sheath removed; pressure applied to access site. 18:19:28 WZ=564 bpm, FICW=675/72 mmhg, SpO2=95 %, Resp=19 B/min, Pain=0, Latisha=10, Hoffman=2 18:24:27 KE=739 bpm, HWKD=865/79 mmhg, SpO2=95 %, Resp=20 B/min, Pain=0, Latisha=10, Hoffman=2 18:28:03 No case complications noted. 18:28:34 A Left Heart Cath was performed. 18:29:30 TVZG=415/73 mmhg, SpO2=96.0 %, Pain=0, Latisha=10, Hoffman=2 18:30:17 Sterile dressing applied to site 18:30:23 Cine recording checked. 18:30:43 Patient moved to stretcher End Study - Contrast Media Used In Study Contrast Total Opened (mL) Total Used (mL) Total Wasted (mL) Omnipaque 150 70 80 End Study - Maximum Contrast Load Max Contrast Load (mL) 376.0 End Study - Radiation Exposure Fluoro Time (minutes) 1.5 End Study - Patient Disposition Complications Transferred To Telemetry Bed
[2017-04-25] MEDS: SODIUM CHLORIDE 0.9% FLUSH 10 ML FLUSH IV FLUSH SCH (21:00)
[2017-04-26] VITALS (17 sets, daily range): BP systolic 97–149; BP diastolic 60–99; PULSE 85–102; RESP 18; TEMP 98.4; O2SAT 18–100
[2017-04-26] MEDS: SODIUM CHLORIDE 0.9% FLUSH 10 ML FLUSH IV FLUSH SCH (08:44)
--- NOTE | 2017-04-26 12:46 | HHI.PR ---
Subjective Remarks Sitting up in chair Color pink Conversational awake Mild left shoulder and radiating chest pain this a.m. (Mia Bonilla) Objective Objective Results - Vital Signs Date Time Temp Pulse Resp B/P Pulse Ox O2 Delivery O2 Flow Rate FiO2 04/26/17 11:45 98.4 85 18 123/90 100 04/26/17 08:15 98.4 85 18 149/99 97 04/26/17 07:01 88 04/26/17 05:00 90 04/26/17 04:13 96 21 04/26/17 04:00 88 04/26/17 03:20 98.4 96 18 97/60 96 04/26/17 03:00 92 04/26/17 02:00 98 04/26/17 01:00 100 04/26/17 00:00 102 04/25/17 23:15 98.0 101 18 126/70 96 04/25/17 23:00 107 04/25/17 22:00 100 04/25/17 21:00 106 04/25/17 20:00 104 04/25/17 19:05 98.0 111 18 130/87 96 04/25/17 19:00 102 04/25/17 16:15 79 04/25/17 15:50 98.4 95 18 139/68 98 04/25/17 15:00 68 18 119/82 99 04/25/17 14:00 74 18 119/82 99 04/25/17 14:00 77 18 121/75 100 04/25/17 13:00 77 18 124/75 99 I/O 04/25/17 04/25/17 04/25/17 04/26/17 04/26/17 04/26/17 07:00 15:00 23:00 07:00 15:00 23:00 Intake Total 3000 ml 480 ml Output Total 400 ml Balance 3000 ml 80 ml Intake Oral 480 ml IV Total 3000 ml Output Urine Total 400 ml (Mia Bonilla) Result Diagram: 04/25/1720 04/25/1720 ROS General: Other (10 point ROS done positives noted) Cardiac: Chest Pain (probable non-cardiac) GI: Other (GERD) Neuro/MS: Other (left shoulder pain) (Mia Bonilla) Physical Exam Physical Exam PHYSICAL EXAMINATION GENERAL: This is a well-developed, well-nourished slim male who appears to be in no acute distress. He is alert and awake, HEAD: Normocephalic without any lesion or mass noted. Facial features appear symmetric. OROPHARYNGEAL: Oropharynx without erythema or edema. NECK: Supple. No nuchal rigidity or lymphadenopathy. Trachea midline without deviation. CARDIAC: Regular rhythm, regular rate, S1 and S2 are heard. Murmur present LUNGS: Clear to auscultation bilaterally. ABDOMEN: Soft, nontender, no organomegaly or masses. Bowel sounds are heard in all four quadrants. No rebound. No guarding. EXTREMITIES: no edema. Pulses intact NEUROLOGICAL: Patient mood and affect appropriate. mild anxiety SKIN:Warm and moist (Mia Bonilla) A/P Assessment and Plan 1. Left shoulder pain radiating into mid-sternal chest pain, rule out acute coronary syndrome and coronary artery disease. 2. Hyperglycemia. No known diabetes. 3. Gastroesophageal reflux disease (GERD). 4. Social alcohol use. 5. Noncalcified pulmonary nodule seen in the right upper lobe. 6. Hyperlipidemia Vital signs reviewed, on occasions patient's blood pressure is elevated including his diastolic, but when it was rechecked trended back down Labs reviewed, lipid profile shows elevated LDL, hemoglobin A1c is pending Chest pain rule out coronary artery disease, patient had heart catheterization is today evening which showed no coronary artery disease. No complications during exam and patient recovered in his room with telemetry. Patient has ambulated today, noted some left shoulder and chest pain. Patient is now resting in feeling somewhat better. States that the pain does radiate from his left shoulder. Hyperlipidemia, discussed his LDL elevation, diet regimen, exercise, stressors and follow-up with his PCP Left shoulder pain persists but is not as prevalent as was yesterday. Patient will need to follow-up with PCP initially, and possibly orthopedics as an outpatient Anxiety/stress, patient has a stressful job, he is , and has been extremely worried about his current medical condition. Supportive care and medical management. GERD medical management, patient states that he is due to have his esophagus stretched again. Encourage patient to take Pepcid on an outpatient basis Appetite good Activity has been increased to ambulate and out of bed Discharge planning, probable today, Will be discussed with Dr. Batista, seen on his behalf Discussed with nurse Discussed with patient. (Mia Bonilla) Assessment and Plan pt seen and examined as above no problem swallowing now meds labs reviwed jenny cardiology input dw him on phone dw rn plan of care dw side hemmer dw pt in detail. 4 yrs ago food stuck in feeding tube had egd and likely dilatation. advised to follow them again and will give pepcid. plan for dc home and to follow pcp and gi as outpt (Rhys Batista MD) Mia Bonilla Apr 26, 2017 12:46 Rhys Batista MD Apr 26, 2017 13:01
[2017-04-26] MEDS ORDERED: FAMO1TAB37 PO (13:03)
--- NOTE | 2017-04-26 14:04 | PD.CARD.PN ---
Subjective Subjective Remarks No angina or CHF symptoms Objective Medications Current Medications Medications (Trade) Dose Ordered Sig/Chris Route Start Time Stop Time Status Last Admin (NS 1000 ml Inj) 1,000 ml @ 100 mls/hr Q10H IV 04/25/17 06:30 04/25/17 07:22 (Nitrostat Sl) 0.4 mg Q5M PRN SL 04/25/17 07:00 04/25/17 11:33 (NS Flush) 2 ml UNSCH PRN IV FLUSH 04/25/17 10:15 (NS Flush) 2 ml BID IV FLUSH 04/25/17 21:00 04/26/17 08:44 (Tylenol) 650 mg Q4H PRN PO 04/25/17 10:15 (Zofran Inj) 4 mg Q6H PRN IVP 04/25/17 10:15 (Narcan Inj) 0.4 mg UNSCH PRN IV 04/25/17 10:15 (Milk Of Magnesia Liq) 30 ml Q12H PRN PO 04/25/17 10:15 (Senokot) 17.2 mg Q12H PRN PO 04/25/17 10:15 Bisacodyl 10 mg 10 mg DAILY PRN RECTAL 04/25/17 10:15 (NS 1000 ml Inj) 1,000 ml @ 30 mls/hr Q24H IV 04/25/17 11:00 (Morphine Inj) 4 mg Q3H PRN IV PUSH 04/25/17 11:45 04/25/17 12:15 Vital Signs / I&O Vital Signs Date Time Temp Pulse Resp B/P Pulse Ox O2 Delivery O2 Flow Rate FiO2 04/26/17 12:01 94 04/26/17 11:45 98.4 85 18 123/90 100 04/26/17 11:00 88 04/26/17 10:00 86 04/26/17 09:00 92 04/26/17 08:15 98.4 85 18 149/99 97 04/26/17 08:00 88 04/26/17 07:01 88 04/26/17 05:00 90 04/26/17 04:13 96 21 04/26/17 04:00 88 04/26/17 03:20 98.4 96 18 97/60 96 04/26/17 03:00 92 04/26/17 02:00 98 04/26/17 01:00 100 04/26/17 00:00 102 04/25/17 23:15 98.0 101 18 126/70 96 04/25/17 23:00 107 04/25/17 22:00 100 04/25/17 21:00 106 04/25/17 20:00 104 04/25/17 19:05 98.0 111 18 130/87 96 04/25/17 19:00 102 04/25/17 16:15 79 04/25/17 15:50 98.4 95 18 139/68 98 04/25/17 15:00 68 18 119/82 99 I/O 04/25/17 04/25/17 04/25/17 04/26/17 04/26/17 04/26/17 07:00 15:00 23:00 07:00 15:00 23:00 Intake Total 3000 ml 480 ml Output Total 400 ml Balance 3000 ml 80 ml Intake Oral 480 ml IV Total 3000 ml Output Urine Total 400 ml Physical Exam GENERAL: In NAD SKIN: Warm and dry. HEAD: Normocephalic. EYES: No scleral icterus. No injection or drainage. NECK: Supple, trachea midline. No JVD or lymphadenopathy. CARDIOVASCULAR: Regular rate and rhythm without murmurs, gallops, or rubs. RESPIRATORY: Breath sounds equal bilaterally. No accessory muscle use. GASTROINTESTINAL: Abdomen soft, non-tender, nondistended. MUSCULOSKELETAL: No cyanosis, or edema. Groin stable Laboratory Laboratory Tests Test 04/25/17 04/25/17 15:14 16:57 Total Creatine Kinase 89 U/L 100 U/L Troponin I LESS THAN 0.02 LESS THAN 0.02 NG/ML NG/ML Triglycerides Level 58 MG/DL Cholesterol Level 177 MG/DL LDL Cholesterol 110 MG/DL HDL Cholesterol 55.2 MG/DL Cholesterol/HDL Ratio 3.20 RATIO Imaging Last Impressions Chest X-Ray 04/25/17 0611 Signed Impressions: Service Date/Time: April 06:15 - CONCLUSION: No evidence of acute cardiopulmonary disease. Sea Metcalf MD Shoulder X-Ray 04/25/17 0000 Signed Impressions: Service Date/Time: April 12:44 - CONCLUSION: 1. Unremarkable radiographs of the left shoulder. José Miguel Dominguez MD Aorta CTA 04/25/17 0000 Signed Impressions: Service Date/Time: April 07:50 - CONCLUSION: 1. No aneurysm or dissection is present. Overall, no acute finding is seen. 2. Incidental right upper lobe 6 mm noncalcified pulmonary nodule. There is back on paraseptal emphysema. Based on Fleischner Society follow up recommendations, suggest 6 month followup noncontrast chest CT to confirm stability. Also correlate with any prior outside imaging studies, if available. 3. Horseshoe kidney. Sea Trotter MD Assessment and Plan Problem List: (1) ACS (acute coronary syndrome) (2) Chest pain Assessment and Plan Cath with patent cors and nl LV fx. Groin stable. Pt. reassured about his cardiac status. DC home. F/u w PCP. Problem Qualifiers (1) Chest pain: Qualified Code: R07.9 - Chest pain, unspecified type Jose Alfredo King MD Apr 26, 2017 14:04
[2017-04-26 15:45] LABS: HEMOGLOBIN A1a 1.3 %; HEMOGLOBIN Ao 85.2 %; HEMOGLOBIN F 0.8 %; HEMOGLOBIN LA1C 1.9 %; HEMOGLOBIN P3 3.4 %
--- NOTE | 2017-04-26 16:33 | EKG ---
Date Performed: 04/25/2017 Time Performed: 07:06:39 PTAGE: 36 years EKG: Sinus rhythm NORMAL ECG PREVIOUS TRACING : 04/25/2017 06.46 Compared to prior tracing no significant change DOCTOR: Crys Villa Interpretating Date/Time 04/26/2017 16:33:09
--- NOTE | 2017-04-26 16:56 | MA ---
cc: JOSE ALFREDO KING MD DATE 04/26/17 INDICATIONS Unstable angina, class III angina. PROCEDURE PERFORMED Right heart catheterization with left ventriculography and selective angiography. ACCESS SITE Access site is right femoral artery. EQUIPMENT USED 5 inch pigtail catheter. 5-Nigerien JL4 and AR modified coronary catheters. MEDICATIONS Versed, IV fentanyl. IV contrast is Omnipaque 70 cc. COMPLICATIONS None. BLOOD LOSS Less than 10 cc. METHOD OF HEMOSTASIS Manual compression. RESULTS HEMODYNAMICS Heart rate 100 beats per minute. Left end diastolic pressure 5 mmHg. Left ventricle 100/5. Aorta 100/73/86. LEFT VENTRICULOGRAPHY Ejection fraction 60%. Wall motion normal. No mitral regurgitation. CORONARY ANGIOGRAPHY Left main coronary artery patent. Left anterior descending artery patent, D1 patent. Left circumflex artery patent, OM1 patent. Ramus intermedius is patent. Right coronary is a dominant vessel which is patent, PDA patent, PLV patent. DIAGNOSIS 1. Widely patent coronary arteries. 2. Preserved left ventricular systolic function. DISPOSITION Mr. Mohan can be reassured of his cardiac status. ____ widely patent coronary arteries and preserved left ventricular systolic function. His chest pain was likely of noncardiac origin. He will be discharged home tomorrow and will follow up with his primary care physician in his office as outpatient. Jose Alfredo King MD OQ/EO /6:27 PM /4:39 PM
== END 2017-04-26 14:33 | disposition home or self-care (01) | DRG 287 ==
LOC: PHED 05:50 → PHEDA 07:46 → HCIS 10:43
PROVIDERS: ADMIT Specialist; ATTEND Specialist
PROC: B2111ZZ Fluoroscopy of Multiple Coronary Arteries using Low Osmolar Contrast (ICD-10-PCS; 2017-04-25)
PROC: B2151ZZ Fluoroscopy of Left Heart using Low Osmolar Contrast (ICD-10-PCS; 2017-04-25)
PROC: 4A023N7 Measurement of Cardiac Sampling and Pressure, Left Heart, Percutaneous Approach (ICD-10-PCS; principal; 2017-04-25 17:30)
DX: R07.89 Other chest pain (principal); I95.9 Hypotension, unspecified; R00.1 Bradycardia, unspecified; M25.512 Pain in left shoulder; Z82.5 Family history of asthma and other chronic lower respiratory diseases; Z80.9 Family history of malignant neoplasm, unspecified; R20.2 Paresthesia of skin; R20.0 Anesthesia of skin; K21.9 Gastro-esophageal reflux disease without esophagitis; R91.1 Solitary pulmonary nodule; R73.9 Hyperglycemia, unspecified; F41.9 Anxiety disorder, unspecified; Z87.74 Personal history of (corrected) congenital malformations of heart and circulatory system; E78.5 Hyperlipidemia, unspecified
CPT/HCPCS: 71010; 71275; 73030; 74174; 80048; 80061; 82550; 82552; 83036; 83735; 84484; 85025; 85610; 85730; 93005; 93458; 96360; 96361; 96374; 96375; 96376; C1769; C1893; J0461; J1644; J2250; J2270; J2405; J3010; J7030; Q9967